=== PATIENT | male | born 1950 | race Caucasian/White ===

== ENCOUNTER 2016-10-11 20:22 | Emergency (ER) | payer MEDICARE, BC ==
[2016-10-11 20:47] LABS: Hematocrit 36.1 % (42.0-52.0); Hemoglobin 11.9 gm/dL (13.5-18.0); Mean Cell Volume 92.3 fl (78-100); Mean Corpuscular Hemoglobin 30.4 pg (27-31); Mean Platelet Volume 8.7 fl (6.0-9.5); Neutrophil # 4.9 K/mm3 (1.3-6.0); Neutrophil % 63.6 % (42-75.0); Platelet Count 218 K/mm3 (150-450); Red Blood Count 3.91 M/mm3 (4.7-6.0); Red Cell Distribution Width 13.1 % (11.5-14.0); White Blood Count 7.7 K/mm3 (4.0-10.5)
--- NOTE | 2016-10-11 20:51 | ERNOTE ---
Neuro HPI ER Record Date of Service: 10/11/16 Presenting Symptoms: weakness, confusion Time Seen by Provider: 10/11/16 20:29 Source: patient Exam Limitations: no limitations Allergies/Adverse Reactions: Allergies Allergy/AdvReac Type Severity Reaction Status Date / Time No Known Allergies Allergy Unverified 10/11/16 20:49 Home Medications: HOME MEDICATIONS Aspirin [Aspir-Low] 81 mg PO DAILY 10/11/16 [Last Taken Unknown] Donepezil HCl [Aricept] 10 mg PO DAILY 10/11/16 [Last Taken Unknown] FLUoxetine HCL [Prozac] 40 mg PO DAILY 10/11/16 [Last Taken Unknown] LORazepam [Ativan] 1 mg PO TID PRN 10/11/16 [Last Taken Unknown] Memantine HCl [Namenda Xr] 28 mg PO DAILY 10/11/16 [Last Taken Unknown] - History of Present Illness Narrative: Pt. comes in with c/o increased weakness and being [facility] at the [facility] just prior to arrival .Pt. has a hx of L sided weakness due to CVA but [facility] staff report an increase in generalized weakness and not having eye contact with the staff which is not baseline. Last Date Known Well: 10/11/16 Last Time Known Well: 17:30 Review of Systems - Review of Systems Constitutional: Present: no symptoms reported. Absent: recent illness, fever, chills, weakness, fatigue, malaise EYE: Present: no symptoms reported ENT: Present: no symptoms reported Respiratory: Present: no symptoms reported. Absent: shortness of breath, cough , wheezing Cardiology: Present: no symptoms reported. Absent: chest pain, palpitations, edema Gastrointestinal/Abdominal: Present: no symptoms reported. Absent: nausea, vomiting, diarrhea Genitourinary: Present: no symptoms reported Musculoskeletal: Present: no symptoms reported. Absent: back pain, joint pain Skin: Present: no symptoms reported Neurological: Present: weakness, pre-existing deficit, other - obtunded. Absent : headache, dizziness/light-headedness All Other Systems: All systems neg except as marked - Patient's Past Medical History Patient History - Cardiac/Respiratory: CVA/Stroke Physical Exam - Physical Exam General Appearance: Present: wd/wn, alert, no apparent distress Eye Exam: Normal inspection: bilateral, PERRL: bilateral, EOMI: bilateral Ears, Nose, Throat: Present: normal ENT inspection Neck: Present: normal inspection, nontender. Absent: lymphadenopathy (R), lymphadenopathy (L) Respiratory: Present: no respiratory distress, normal breath sounds, no accessory muscle use, chest nontender, lungs clear Cardiovascular/Chest: Present: regular rate, rhythm, no murmur, normal peripheral pulses Gastrointestinal/Abdominal: Present: normal bowel sounds, nontender, nondistended, soft, no organomegaly Back Exam: Present: normal inspection, normal range of motion, no CVA tenderness , no vertebral tenderness Extremity Exam: Present: normal inspection, non-tender, normal range of motion, no edema Neurological Exam: Present: alert, normal mood/affect, motor weakness - L sided normal for pt., other - pt. is non verbal base line for pt. following commands at this time Skin Exam: Present: normal color, warm/dry. Absent: pallor, skin rash Earnestine Coma Scale - Assess Eye Opening: Spontaneous Motor: Obeys Commands Verbal: None - Total Coma Scale Total: 11 Initial Stroke Assessment - Date/Time of assessment Stroke Scale Date: 10/11/16 Stroke Scale Time: 20:48 - NIH Stroke Scale Level of Consciousness: Alert LOC Questions (Year and Age): Answers neither correctly LOC Commands (open/close eyes/fist): Performs both correctly Lateral Gaze Paresis: None Visual Field Loss: Partial hemianopsia Facial Palsy: Partial facial paralysis Right Arm Motor (10 sec hold): No drift Left Arm Motor (10 sec hold): No drift Right Leg Motor (5 sec hold): No drift Left Leg Motor (5 sec hold): Drift, effort made Limb Ataxia (finger/nose heel/castaneda): Present in 2 limbs If present, ataxia in:: Left arm, Left leg Sensory Loss (pinprick arms/legs/face): No sensory loss Language Aphasia (description/naming/reading): Mute, global aphasia Dysarthria (speech clarity): Untestable Neglect Inattention (visual/tactile/auditory/spatial/person): No neglect Initial Stroke Scale Score:: 12 Stroke Inclusion/Exclusion Cri - Exclusion Questions: Major symptoms rapidly improving: Yes ED Progress - Date and Time Seen: Date and Time: 10/11/16 21:54 As Pt. is at baseline and has been at baseline since arrival and event lasting no longer than 15 minutes feel that this was not likely CVA or TIA but more likely seizure vs pt. normal baseline status. Discussed options with family and they would like to return him to [facility] at this time as they feel that pt. is unknown to nurses and that pt. is often weaker at night and that evaluating for a one time possible seizure or TIA is not likely to improve quality of life. I agree with family decision at this time. - Vital Signs Patient's Vital Signs:: I have reviewed the patient's vital signs. Departure Clinical Impression: Altered mental status Qualifiers: Altered mental status type: transient alteration of awareness Qualified Code(s) : R40.4 - Transient alteration of awareness - Departure Disposition: [facility] Condition: Good
[2016-10-11 21:00] LABS: INR 1.01 INR (0.90-1.10); Prothrombin Time (Patient) 10.5 Seconds (9.4-11.4)
[2016-10-11 21:07] LABS: Albumin * 3.5 gm/dl (3.4-5.0); Anion Gap 8.4 mmol/L (6.8-13.8); BUN/Creatinine Ratio 19.8 (9.0-21.6); Bilirubin, Total 0.2 mg/dL (0.0-1.1); Calcium * 8.9 mg/dL (7.9-10.9); Carbon Dioxide 32.1 mmol/L (24-32.6); Potassium 4.5 mmol/L (3.4-4.6); Total Protein 6.9 gm/dL (6.2-8.2)
--- OUTSIDE RECORDS SUMMARY | 2016-10-11 21:16 | XMS REPORT | CCD ---
:1950 Author Name KIRSTIN OLIVEIRA Address [address] [facility] [place] [address] Care Team Providers Name Role Phone DAVIDSON WORTHINGTON MD Attending Physician Unavailable DAVIDSON WORTHINGTON MD Er Physician 1 Unavailable Allergies Allergy Code Allergy Type Reaction Status NO KNOWN DRUG ALLERGIES - NKDA 0 Drug allergy Active Active Medications Unknown or Not Available. Problems Unknown or Not Available. Procedures Unknown or Not Available. Results COMPREHENSIVE METABOLIC PANEL - Collect Date/Time: 10/01/2015 15:27 Test Name Code Test Result Test Units Test Ref Range GLUCOSE 94 mg/dL L=74 H=106 SODIUM 142 mmol/L L=136 H=145 POTASSIUM 4.3 mmol/L L=3.5 H=5.1 CHLORIDE 105 mmol/L L=98 H=107 CO2 27 mmol/L L=21 H=32 BUN 22.0 mg/dL L=7.0 H=18.0 CREATININE 0.9 mg/dL L=0.8 H=1.3 BUN/CREAT 24.4 L=7.6 H=21.2 CALCIUM 8.7 mg/dL L=8.6 H=10.1 TOTAL BILI 0.3 mg/dL L=0.2 H=1.0 TOTAL PROTEIN 7.7 g/dL L=6.4 H=8.2 ALBUMIN 3.7 g/dL L=3.4 H=5.0 A/G RATIO 0.9 ALKALINE PHOS 93 IU/L L=50 H=136 AST/SGOT 16 IU/L L=15 H=37 ALT/SGPT 31 IU/L L=12 H=78 ANION GAP 13.9 mmol/L L=7.0 H=16.0 AGE 64 YEARS GFR 89.73 ml/min CBC W/DIFF - Collect Date/Time: 10/01/2015 15:27 Test Name Code Test Result Test Units Test Ref Range WBC 6690-2 7.4 K/uL L=3.2 H=10.0 RBC 789-8 4.20 M/uL L=4.30 H=5.70 HEMOGLOBIN 718-7 13.0 g/dL L=13.6 H=17.1 HEMATOCRIT 39.2 % L=40.0 H=52.0 MCV 93.3 fL L=81.0 H=101 MCH 31.0 PG L=26.0 H=38.0 MCHC 33.2 G/DL L=31.0 H=37.0 RDW-SD 43.5 FL L=37.0 H=54.0 RDW-CV 13.1 % L=11.0 H=16.0 PLATELETS 777-3 263 K/UL L=140 H=380 MPV 9.1 FL L=9.0 H=13.0 %GRAN 73.1 % L=0.0 H=75.0 %LYMPH 15.0 % L=0.0 H=50.0 %MONO 10.9 % L=0.0 H=14.0 %EOS 0.7 % L=0.0 H=6.0 %BASO 0.3 % L=0.0 H=1.0 #GRAN 5.43 K/UL L=1.80 H=7.80 #LYMPH 1.11 K/UL L=0.30 H=4.00 #MONO 0.81 K/UL L=0.00 H=0.70 #EOS 0.05 K/UL L=0.00 H=0.40 #BASO 0.02 K/UL L=0.00 H=0.10 SLIDE REVIEWED? NOT INDICATED N/A MANUAL DIFF NOT INDICATED N/A UA W/MICROSCOPIC EXAM - Collect Date/Time: 10/01/2015 16:02 Test Name Code Test Result Test Units Test Ref Range COLOR UR Yellow N/A NORMAL:YELLOW CLARITY UR Clear N/A NORMAL:CLEAR SP GRAV UR 1.025 N/A NORMAL:1.000-1.030 PH UR 5.5 N/A NORMAL:5.0-8.5 PROTEIN UR Negative N/A NORMAL:NEGATIVE GLUCOSE UR Negative N/A NORMAL:NEGATIVE KETONE UR Negative N/A NORMAL:NEGATIVE BILIRUBIN UR Negative N/A NORMAL:NEGATIVE BLOOD UR Negative N/A NORMAL:NEGATIVE LEUK UR Negative N/A NORMAL:NEGATIVE NITRITE UR Negative N/A NORMAL:NEGATIVE MICRO SEE BELOW N/A RBC/hpf 0 N/A NORMAL:0-5/hpf WBC/hpf 0 N/A NORMAL:0-10/hpf EPI UR NONE SEE N/A NORMAL:NONE SEEN BACTERIA UR NONE SEE N/A NORMAL:NONE SEEN MUCOUS NONE SEE N/A NORMAL:NONE SEEN CAST NONE SEE N/A CRYSTALS NONE SEE N/A CULTURE? NO N/A Function Status Unknown or Not Available. History of Immunizations Unknown or Not Available. Plan of Treatment Unknown or Not Available. Social History Smoking Status Code Start Date End Date Never smoker [phone] Vital Signs Unknown or Not Available. Function Status Unknown or Not Available. Goals Unknown or Not Available. ASSESSMENTS Unknown or Not Available. Health Concerns Section Unknown or Not Available.
[2016-10-11 21:34] LABS: Urine Bilirubin Negative (NEGATIVE); Urine Blood Negative /ul (NEGATIVE); Urine Ketone Negative (NEGATIVE); Urine Nitrite Negative (NEGATIVE); Urine Protein Negative (NEGATIVE); Urine Specific Gravity 1.015 SP.GR. (1.005-1.030); Urine Urobilinogen Normal (NORMAL); Urine pH 6.5 pH (5.0-7.0)
[2016-10-11 21:43] LABS: Urine Appearance Clear; Urine Bacteria TRACE; Urine Color Yellow; Urine RBC None Seen /hpf (0-5); Urine WBC None Seen /hpf (0-5)
[2016-10-11 22:35] VITALS: BP 124/72
== END 2016-10-11 22:15 ==
LOC: ER 20:22
DX: R40.4 Transient alteration of awareness (principal); Z86.73 Personal history of transient ischemic attack (TIA), and cerebral infarction without residual deficits

== ENCOUNTER 2016-11-03 17:07 | Emergency (ER) | payer MEDICARE, BC ==
[2016-11-03 17:17] VITALS: BP 126/76
--- NOTE | 2016-11-03 17:39 | ERNOTE ---
Neuro HPI ER Record Presenting Symptoms: other Time Seen by Provider: 11/03/16 17:24 Source: residential records Exam Limitations: clinical condition Immunizations: IMMUNIZATION HX Immunizations Up to Date Yes History of Influenza Vaccine Yes Hx Pneumococcal Vaccination Yes Allergies/Adverse Reactions: Allergies Allergy/AdvReac Type Severity Reaction Status Date / Time No Known Allergies Allergy Verified 11/03/16 17:20 Home Medications: HOME MEDICATIONS Aspirin [Aspir-Low] 81 mg PO DAILY 10/11/16 [Last Taken Unknown] Donepezil HCl [Aricept] 10 mg PO DAILY 10/11/16 [Last Taken Unknown] FLUoxetine HCL [Prozac] 20 mg PO DAILY 10/11/16 [Last Taken Unknown] LORazepam [Ativan] 1 mg PO TID PRN 10/11/16 [Last Taken Unknown] Memantine HCl [Namenda Xr] 28 mg PO DAILY 10/11/16 [Last Taken Unknown] Acetaminophen [Tylenol] 650 mg PO QID 10/31/16 [Last Taken Unknown] - History of Present Illness Narrative: Patient is coming from the residential for mental status changes. He is sleeping on a mat on the floor and has been banging his head on the floor. Patient was seen on 10/31 for combative behavior in residential but was discharged from here as he was acting normal and had normal testing here. He was seen again 11/01 for fall and possible left hip fracture, Xray was possibly abnormal, but CT did not show any hip fracture but old healing pelvic fractures. Patient continues to be agitated and per residential has been banging his head on the floor. He has a history of dementia, per his MAR he is receiving 2mg ativan tid plus prn doses of 1mg up to tid, as well as haldol. Family states that they are concerned that the patient is in pain that might not be adequately treatment. Patient has not been able to express location of pain Review of Systems - Narrative Narrative: unobtainable - Patient's Past Medical History Patient History - Medical: Anxiety, Dementia Patient History - Cardiac/Respiratory: CVA/Stroke Patient History - Cancer: Skin Patient History - Surgical Procedures: No surgical history Patient History - Other: None - Social History Living Situations: residential Abuse History: No History of abuse Psych History: No pertinent hx Smoking Status: Never smoker Alcohol Use: rarely Drug Use: none - Immunizations Immunizations Up to Date: Yes Hx Pneumococcal Vaccination: Yes History of Influenza Vaccine: Yes Physical Exam - Physical Exam General Appearance: Present: wd/wn, no apparent distress, lethargic Ears, Nose, Throat: Present: dry mucous membranes, other - no obvious signs of head injury Neck: Present: normal inspection Respiratory: Present: no respiratory distress, no accessory muscle use, lungs clear, decreased breath sounds Cardiovascular/Chest: Present: regular rate, rhythm, no murmur Gastrointestinal/Abdominal: Present: nontender, nondistended, soft Male Genitals Exam: Present: normal genitalia Back Exam: Present: normal inspection, other - no sign of injury, no decubitus ulcers Extremity Exam: Present: normal inspection Neurological Exam: Present: other - lethagic, does not follow commands, moves all extrmeties Skin Exam: Present: normal color, warm/dry ED Progress - Vital Signs Patient's Vital Signs:: I have reviewed the patient's vital signs. Vital Signs: Vital Signs 11/03/16 17:09 Temperature 36.7 C Pulse Rate 70 Respiratory 15 Rate Blood Pressure 126/76 O2 Sat by Pulse 99 Oximetry - Progress/Reassessment Chief Complaint: Altered Mental Status Progress Note-Subjective: 11/03/16 17:45 discussed with family. They had requested that patient be transferred to [facility] from the residential but patient was brought here instead.They refuse any testing here but are insisting that the patient be transferred to [facility], explained that insurance would not pay transfer to [facility], offered evaluation here, family insisting on transfer 11/03/16 17:[address] Aviles (ERP) at [facility], accepted patient for transfer Departure Clinical Impression: Altered mental status Qualifiers: Altered mental status type: unspecified Qualified Code(s): R41.82 - Altered mental status, unspecified Dementia Qualifiers: Dementia type: unspecified type Dementia behavioral disturbance: with behavioral disturbance Qualified Code(s): F03.91 - Unspecified dementia with behavioral disturbance - Departure Disposition: [facility] Condition: Fair
== END 2016-11-03 18:15 | disposition short-term general hospital (02) ==
LOC: ER 17:07
DX: R41.82 Altered mental status, unspecified (principal); F03.91 Unspecified dementia, unspecified severity, with behavioral disturbance; Z86.73 Personal history of transient ischemic attack (TIA), and cerebral infarction without residual deficits